=== PATIENT | male | born 1985 | race Two or more races ===

== ENCOUNTER 2020-08-16 14:16 | Emergency (ER) | payer OTHER ==
[~2020-08-16] VITALS: Ht 172.7 cm; Wt 85.0 kg
[2020-08-16 14:20] VITALS: BP 160/99; Ht 172.7 cm; Wt 85.0 kg
== END 2020-08-16 15:22 | disposition left against medical advice (07) ==
LOC: D.ER 14:16
DX: R52 Pain, unspecified (principal); Z91.19 Patient's noncompliance with other medical treatment and regimen; F10.20 Alcohol dependence, uncomplicated; Y90.9 Presence of alcohol in blood, level not specified